=== PATIENT | female | born 1945 | race Caucasian/White ===

== ENCOUNTER 2016-07-13 01:01 | Inpatient (IN) | payer MEDICARE, MEDICAID ==
[~2016-07-13] VITALS: Ht 157.5 cm; Wt 61.2 kg
[2016-07-13] VITALS (10 sets, daily range): BP systolic 102–146; BP diastolic 57–69
[~2016-07-13 01:01] MED LIST: BENICAR20 MG ORAL; IBUPROFEN600 MG ORAL; NKM; ZOFRAN ODT4 MG ORAL
--- NOTE | 2016-07-13 01:39 | Emergency Room Report ---
History of Present Illness General Chief Complaint: Abdominal Pain Source: Patient Present Illness HPI This is a 70-year-old female with no significant past medical history. She did have a history of appendectomy. She presents with chief complaint epigastric and right upper quadrant pain. Onset started this morning around 9 AM. It went away in an 11:00 she has severe pain. Pain lasted for about 15 minutes or so. She became pale and diaphoretic according to her son. The pain went away she came back to normal. She was doing well at about an hour ago. Now pain came back again and it's localized retinal quadrant epigastric area. No pain to the back. Nausea and vomiting. No diarrhea. No fever or chills. No chest pain. No exertional component. Allergies: Coded Allergies: MORPHINE (Unverified Adverse Reaction, Severe, Hallucinations, 08/13/13) Patient History Past Medical History: see triage record, old chart reviewed Past Surgical History: appy Pertinent Family History: none Social History: Denies: smoking Last Menstrual Period: NONE Now: No Immunizations: other Reviewed Nursing Documentation: PMH: Agreed, PSxH: Agreed Nursing Documentation-PMH Hx Hypertension: Yes Hx Cancer: No Hx Gastrointestinal Problems: No Hx Vertigo: Yes Hx Dizziness: Yes Hx Headaches: Yes Review of Systems Eye: Denies: blurred vision, eye pain ENT: Denies: ear pain, nose congestion, throat swelling Respiratory: Denies: cough, shortness of breath Cardiovascular: Denies: chest pain, palpitations Gastrointestinal: Reports: abdominal pain, nausea, vomiting, Denies: diarrhea Musculoskeletal: Denies: back pain, joint pain Skin: Denies: rash Neurological: Denies: headache, numbness Endocrine: Denies: increased thirst, increased urine Hematologic/Lymphatic: Denies: easy bruising All Other Systems: negative except mentioned in HPI Physical Exam Vital Signs Date Time Temp Pulse Resp B/P Pulse Ox O2 Delivery O2 Flow Rate FiO2 07/13/16 01:03 99.0 104 16 148/69 97 Room Air vitals unremarkable Sp02 EP Interpretation: reviewed, normal General Appearance: well appearing, no apparent distress, alert Head: normocephalic, atraumatic Eyes: bilateral eye EOMI, bilateral eye PERRL ENT: hearing grossly normal, normal pharynx Neck: full range of motion, supple, no meningismus Respiratory: chest non-tender, lungs clear, normal breath sounds Cardiovascular #1: regular rate, rhythm, no murmur Gastrointestinal: normal bowel sounds, no mass, no organomegaly, no bruit, non- distended, tenderness - Epigastric and right upper quadrant Musculoskeletal: back normal, gait/station normal, normal range of motion Psychiatric: mood/affect normal Skin: warm/dry Medical Decision Making Diagnostic Impression: Primary Impression: Cholelithiasis Qualified Codes: K80.20 - Calculus of gallbladder without cholecystitis without obstruction ER Course Patient present with epigastric pain and right upper quadrant pain. My bedside ultrasound has positive Us sign. She does have gallstones and sludge. His skin negative for obstruction. CT scan negative for cholecystitis. Labs show slight elevation of AST ALT. Because of her continual pain, will admit for further evaluation. I contacted Dr. Telles who will be admitting for Dr. Palmer. because of her continual pain, worrisome for early cholecystitis. Will admit. Lab Results Impression labs with slight elevation of LFTs EKG Diagnostic Results Rate: normal Rhythm: NSR ST Segments: no acute changes Rhythm Strip Diag. Results EP Interpretation: yes Rate: 95 Rhythm: NSR, no PVC's, no ectopy CT/MRI/US Diagnostic Results CT/MRI/US Diagnostic Results : Imaging Test Ordered: CT abdomen and pelvis. Impression read by radiologist. Gallstones. No cholecystitis obstruction Last Vital Signs Date Time Temp Pulse Resp B/P Pulse Ox O2 Delivery O2 Flow Rate FiO2 07/13/16 01:15 96 27 146/68 98 Room Air 07/13/16 01:03 99.0 Status: improved Disposition: ADMITTED INPATIENT Condition: Serious EDGARDO BEDOYA M.D. July 13, 2016 01:39
[2016-07-13 01:45] LABS: MEAN CORPUSCULAR HEMOGLOBIN 29.9 PG (27.0-31.0); MEAN CORPUSCULAR HGB CONC 34.5 G/DL (32.0-36.0); MEAN CORPUSCULAR VOLUME 87 FL (80-99); MEAN PLATELET VOLUME 7.7 FL (6.5-10.1); PLATELET COUNT 171 K/UL (150-450); RED CELL DISTRIBUTION WIDTH 11.7 % (11.6-14.8); WHITE BLOOD COUNT 8.8 K/UL (4.8-10.8)
[2016-07-13] MEDS ORDERED: Hydromorphone 0.5mg/0.5ml inj IVP ONE (01:45)
[2016-07-13 01:59] LABS: ALBUMIN/GLOBULIN RATIO 1.7 (1.0-2.7); CALCIUM 9.3 mg/dL (8.6-10.2); GLOMERULAR FILTRATION RATE 55.1 mL/min (>60); POTASSIUM 3.9 mEQ/L (3.4-4.9); TOTAL PROTEIN 6.7 g/dL (6.6-8.7)
[2016-07-13 02:08] LABS: TROPONIN I < 0.30 ng/mL (<=0.30)
[2016-07-13 03:29] LABS: APPEARANCE,URINE CLEAR; KETONES,URINE NEGATIVE (NEGATIVE); LEUKOCYTE ESTERASE ,URINE 2+ (NEGATIVE); NITRITE,URINE NEGATIVE (NEGATIVE); PH,URINE 5 (4.5-8.0); PROTEIN,URINE NEGATIVE (NEGATIVE); UROBILINOGEN,URINE NORMAL MG/DL (0.0-1.0)
[2016-07-13 03:37] LABS: BACTERIA,URINE FEW /HPF; RBC,URINE 0-2 /HPF (0 - 2); SQUAMOUS EPITHELIAL CELL,UR FEW /LPF (NONE/OCC)
[2016-07-13] MEDS ORDERED: Milk of Magnesia 30ml Ud ORAL PRN (07:30)
[2016-07-13] MEDS ORDERED: Norco 5mg/325mg tab ORAL PRN (07:30)
[2016-07-13] MEDS ORDERED: Hydromorphone 0.5mg/0.5ml inj IVP PRN (07:30)
[2016-07-13] MEDS ORDERED: Miralax 17gm pkt ORAL PRN (07:30)
--- NOTE | 2016-07-13 07:53 | Consultation ---
Consult Note Consult Note Surgery Came to ED due to 2 hours of epigastric pain. Has completely gone away. Never had before. Not sure if it was right or left, was right in the middle of the upper abdomen for her. Denies fevers/chills. [place] nauseated but not sure if she vomitted. PMHx: HTN PSHx: Appendectomy, Tonsills Meds: Benicar Allergies: Morphine FamHx: non contib SocHx: non contrib ROS: as per above PE: AVSS NAD AAO unlabored soft, non tender in all quads to deep palpation Labs reviewed WBC normal Imaging: none Assessment/Plan a/p epigastric pain differential: Colic vs. PUD vs. other resolved after 2 hours can cont with outpatient follow up and workup no surgical intervention indicated at moment ISAAC MAYBERRY July 13, 2016 07:53
[2016-07-13] MEDS: D5 1/2NS w/KCl 20mEq 1,000 ML IV SCH ×3 (09:28→20:54)
--- NOTE | 2016-07-13 09:44 | Diagnostic Imaging Report ---
Indication: Abdominal pain Technique: Continuous helical transaxial imaging of the abdomen and pelvis was obtained from the lung bases to the pubic symphysis during intravenous contrast administration. Coronal 2-D reformats were also obtained. Study obtained in a Siemens sensation [address] Total Dose length Product (DLP): [address] Dose Index Volume (CTDIvol): 18 mGy Comparison: None Findings: There is mild posterior basilar atelectasis demonstrated. Gallstones are present. Arterial vascular consultations noted in the aorta. Small hiatal hernia is present. Is no abnormalities of the pancreas, adrenal glands or spleen appreciated. No free fluid or free air identified. Diverticula noted in the colon. Urinary bladder is unremarkable. There is narrowing of intervertebral discs and accompanying endplate osteophyte formation. Hypertrophied facet joints also demonstrated.. Impression: Cholelithiasis. Hiatal hernia Mild posterior basilar atelectasis Diverticulosis of the colon Atherosclerotic vascular disease [facility] has communicated the preliminary results to the Emergency Department. Their findings are largely concordant with this report. The CT scanner at [facility] is accredited by the [employer] and the scans are performed using dose optimization techniques as appropriate to a performed exam including Automatic Exposure control.
--- NOTE | 2016-07-13 11:23 | General Progress Note ---
Assessment/Plan Assessment/Plan Assessment - resolved transient epigastric pain, ? viral - mildly abnormal LFT - cholelithiasis - diverticulosis - Hiatal hernia Recommendations - conservative Rx - check hepatitis serologies - po diet trial - outpt EGD/Colon Subjective Allergies: Coded Allergies: MORPHINE (Unverified Adverse Reaction, Severe, Hallucinations, 08/13/13) Objective Last 24 Hour Vital Signs Date Time Temp Pulse Resp B/P Pulse Ox O2 Delivery O2 Flow Rate FiO2 07/13/16 08:10 98.1 69 20 110/59 97 Room Air 07/13/16 06:30 98.1 20 102/58 69 Room Air 07/13/16 05:46 79 19 116/57 96 07/13/16 05:30 98.0 79 19 116/57 96 Room Air 07/13/16 04:00 80 18 133/69 98 Room Air 07/13/16 03:00 99.0 07/13/16 01:59 96 21 129/57 96 07/13/16 01:15 96 27 146/68 98 Room Air 07/13/16 01:03 99.0 104 16 148/69 97 Room Air Intake and Output 07/12/16 07/13/16 19:00 07:00 Intake Total 0 ml Balance 0 ml Intake Oral 0 ml Laboratory Tests 07/13/16 01:15: White Blood Count 8.8, Red Blood Count 4.30, Hemoglobin 12.9, Hematocrit 37.2, Mean Corpuscular Volume 87, Mean Corpuscular Hemoglobin 29.9, Mean Corpuscular Hemoglobin Concent 34.5, Red Cell Distribution Width 11.7, Platelet Count 171, Mean Platelet Volume 7.7, Neutrophils (%) (Auto) , Lymphocytes (%) (Auto) , Monocytes (%) (Auto) , Eosinophils (%) (Auto) , Basophils (%) (Auto) , Sodium Level 141, Potassium Level 3.9, Chloride Level 100, Carbon Dioxide Level 23, Anion Gap 18H, Blood Urea Nitrogen 18, Creatinine 1.0H, Estimat Glomerular Filtration Rate 55.1, Glucose Level 108H, Calcium Level 9.3, Total Bilirubin 0.9 , Aspartate Amino Transf (AST/SGOT) 54H, Alanine Aminotransferase (ALT/SGPT) 42H , Alkaline Phosphatase 86, Troponin I < 0.30, Total Protein 6.7, Albumin 4.3, Globulin 2.4, Albumin/Globulin Ratio 1.7, Lipase 28 07/13/16 03:05: Urine Color Pale yellow, Urine Appearance Clear, Urine pH 5, Urine Specific [place] 1.010, Urine Protein Negative, Urine Glucose (UA) Negative, Urine Ketones Negative, Urine Occult Blood Negative, Urine Nitrite Negative, Urine Bilirubin Negative, Urine Urobilinogen Normal, Urine Leukocyte Esterase 2+H, Urine RBC 0-2, Urine WBC 2-4, Urine Squamous Epithelial Cells Few, Urine Bacteria Few Height (Feet): 5 Height (Inches): 2.00 Weight (Pounds): 135 LETICIAJCWALTER July 13, 2016 11:23
--- NOTE | 2016-07-13 16:59 | History & Physical ---
History and Physical History & Physicial Dictated for Int Med - Dr Telles no. [id number]. JONATHAN PADRON July 13, 2016 16:59
--- NOTE | 2016-07-13 20:15 | History and Physical Report ---
DATE OF ADMISSION: 07/13/2016 CHIEF COMPLAINT: The patient is a 70-year-old white female who presents with complaint of abdominal pain. HISTORY OF PRESENT ILLNESS: Couple of hours prior to admission, around 9 o'clock on 07/12/2016 the patient began to have epigastric pain. The patient is not sure whether it radiated to the right or to the left side. The patient presented to [place] emergency room. The patient states the pain is now resolved. The patient states the pain lasts about two hours. The patient presented today with a chief complaint of epigastric pain. REVIEW OF SYSTEMS: Constitutional: The patient denies weight loss or weight gain. The patient denies fever or chills. HEENT: The patient denies ear or throat pain. Cardiovascular: The patient denies palpitations or chest pain. Chest: The patient denies wheeze or shortness of breath. Abdomen: The patient complains of epigastric pain as above. The patient denies nausea, vomiting, diarrhea, constipation. Genitourinary: The patient denies dysuria or increased frequency of urination. Neuromuscular: The patient seizures or generalized weakness. PAST MEDICAL HISTORY: Significant for: 1. Hypertension. 2. Tinnitus bilateral ears. PAST SURGICAL HISTORY: Significant for. 1. Tonsillectomy. 2. Appendectomy. 3. Bilateral tubal ligation. CURRENT MEDICATIONS: 1. Ibuprofen 600 mg one tablet p.o. every 6 hours p.r.n. 2. Benicar 20 mg one tablet p.o. daily. 3. Zofran 4 mg one tablet p.o. every 6 hours as needed. ALLERGIES: To morphine. SOCIAL HISTORY: The patient is . 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 The patient denies tobacco or alcohol use. PHYSICAL EXAMINATION: VITAL SIGNS: Temperature 98.0, respirations 19, pulse 79, blood pressure 116/57. GENERAL: The patient is well-developed and well-nourished white female, in no apparent distress. HEENT: Eyes, pupils are equal and responsive to light and accommodation. Extraocular movements are intact. NECK: Supple. No lymphadenopathy. CHEST: Lungs are clear to auscultation bilaterally without wheezes or rales. CARDIOVASCULAR: Regular rhythm and rate. S1 and S2 normal without murmurs, rubs, or gallops. ABDOMEN: Soft, nondistended with positive bowel sounds. There is tenderness to palpation in the epigastric region. There is no rebound or guarding. EXTREMITIES: Negative for clubbing, cyanosis, edema. RECTAL: Refused. GENITALIA: Refused. NEUROLOGIC: Cranial nerves II through XII are grossly intact without focal deficits. Motor strength is 5/5 bilaterally. Deep tendon reflexes are 2+ plantar. LABORATORY STUDIES: WBC 8.8, hemoglobin 12.9, hematocrit 37.2, and platelets 171,000. Sodium 141, potassium 3.9, chloride 100, CO2 23, BUN 18, creatinine 1.0, glucose 108, AST elevated at 54, ALT elevated at 42. Troponin less than 0.3. A CT scan of the abdomen and pelvis revealed cholelithiasis. There were no common bile duct stones noted. There was also a diverticulosis of the colon without diverticulitis. ASSESSMENT: This is a 70-year-old white female. 1. Epigastric pain. 2. Elevated liver function tests. 3. Cholelithiasis. 4. Hypertension. 5. Diverticulosis. TREATMENT: 1. Epigastric pain/elevated liver function tests. A Gastroenterology consultation was obtained with Dr. Cory Gonzalez. We will follow recommendations of Gastroenterology. The patient may require endoscopic retrograde cholangiopancreatography if the stone is found in the common bowel duct. A surgery consultation is pending with Dr. Cline. 2. Elevated liver function tests probably secondary to cholelithiasis. 3. Cholelithiasis. A surgery consultation is pending with Dr. Cline. We will recommendations of surgery. 4. Hypertension. Continue the Benicar as above. 5. Diverticulosis, stable. Caleb Myers M.D. DR: Baylee JOB#: [id number] CC:
--- NOTE | 2016-07-13 22:00 | Consultation ---
DATE OF CONSULTATION: 07/13/2016 GASTROENTEROLOGY CONSULTATION CONSULTING PHYSICIAN: Nicole Almonte M.D. REFERRING PHYSICIAN: Mayo Telles M.D. CHIEF COMPLAINT: I was asked to see this patient by Dr. Mayo Telles for evaluation of abdominal pain and abnormal liver tests. HISTORY OF PRESENT ILLNESS: The patient is a pleasant 70-year-old white woman who comes into the hospital with acute onset of epigastric abdominal pain for a few hours. The patient's pain resolved soon after admission to the hospital. There was some nausea and vomiting x2, but this has resolved. There has been no diarrhea. She had a bowel movement yesterday, which was normal. She has never had an endoscopy or colonoscopy in her life. CT scan showed some cholelithiasis, diverticulosis, and hiatal hernia, but otherwise no other findings were identified. The patient feels better now. PAST MEDICAL HISTORY: History of hypertension and history of Meniere's disease. ALLERGIES: Morphine. FAMILY HISTORY: Positive for high blood pressure. SOCIAL HISTORY: The patient is . She does not smoke or drink alcohol. REVIEW OF SYSTEMS: Otherwise negative. PHYSICAL EXAMINATION: GENERAL: This is a pleasant white woman, seen in her room. HEENT: Normocephalic and atraumatic. Sclerae anicteric. Oropharynx is clear. NECK: Supple. CHEST: Clear to auscultation. CARDIOVASCULAR: Regular rate. ABDOMEN: Soft and nondistended with some minimal tenderness to palpation in the epigastric region without guarding or rebound. EXTREMITIES: No edema. NEUROLOGIC: Nonfocal. LABORATORY DATA: Noted. ASSESSMENT: This patient presents with transient nausea, vomiting, and abdominal pain, which has resolved spontaneously without definitive treatment. She does have some gallstones, but these are likely incidental. Differential diagnosis especially in view of the transient nature of the symptoms include mild gastroenteritis. She does not show any edel evidence of bleeding. Her stools can be checked for occult blood both for evaluation and as a matter of screening. The patient was advised strongly to undergo an outpatient colonoscopy to screen for colon malignancy unrelated to her current presentation. The patient also was also advised that an endoscopy can be done at the same time. She is, however, reluctant to have any gastrointestinal procedures done and she understands the possibility of a missed significant diagnosis as malignancy. If she is better, I would begin her on clear liquid diet and observe and advance as tolerated. RECOMMENDATIONS: Per above discussion and per orders written in the chart. Thank you for asking me to participate in the care of this patient. Nicole Almonte M.D. DR: DAISY JOB#: [id number] CC:
--- NOTE | 2016-07-13 22:31 | Consultation ---
History of Present Illness General Date patient seen: July 13, 2016 Chief Complaint: Abdominal Pain Reason for Consultation: inpatient management Present Illness HPI 70-year-old female with pmhx of HTN presented with chief complaint epigastric and right upper quadrant pain. Pain lasted for about 15 minutes or so. She became pale and diaphoretic according to her son. The pain went away she came back to normal. She was doing well at about an hour ago. Then pain came back again and it's localized right quadrant epigastric area. No pain to the back. Nausea and vomiting. No diarrhea. No fever or chills. No chest pain. No exertional component. Allergies: Coded Allergies: MORPHINE (Unverified Adverse Reaction, Severe, Hallucinations, 08/13/13) Medication History Scheduled No Known Medications* (NKM - No Known Medications*), 0 ., (Reported) No Known Medications* (NKM - No Known Medications*), 0 ., (Reported) Olmesartan Medoxomil (Benicar), 20 MG ORAL DAILY, (Reported) Scheduled PRN Ibuprofen* (Motrin*), 600 MG ORAL Q6H PRN for For Pain, (Reported) Ondansetron Odt* (Zofran Odt*), 4 MG ORAL Q6H PRN for Nausea & Vomiting Patient History Healthcare decision maker Resuscitation status Full Code Advanced Directive on File No Past Medical/Surgical History Past Medical/Surgical History: (1) Hypertension Review of Systems All Other Systems: negative except mentioned in HPI Physical Exam General Appearance: WD/WN Lines, tubes and drains: peripheral HEENT: normocephalic, atraumatic Neck: non-tender, normal alignment Respiratory/Chest: chest wall non-tender, lungs clear Breasts: no masses Cardiovascular/Chest: normal peripheral pulses Abdomen: normal bowel sounds, non tender Genitourinary/Rectal: normal genital exam Extremities: normal range of motion Last 24 Hour Vital Signs Date Time Temp Pulse Resp B/P Pulse Ox O2 Delivery O2 Flow Rate FiO2 07/13/16 19:55 98.2 77 20 126/60 97 Room Air 07/13/16 16:24 98.6 75 21 130/64 99 Room Air 75 07/13/16 12:29 97.7 96 25 117/57 99 Room Air 96 07/13/16 08:10 98.1 69 20 110/59 97 Room Air 07/13/16 06:30 98.1 20 102/58 69 Room Air 07/13/16 05:46 79 19 116/57 96 07/13/16 05:30 98.0 79 19 116/57 96 Room Air 07/13/16 04:00 80 18 133/69 98 Room Air 07/13/16 03:00 99.0 07/13/16 01:59 96 21 129/57 96 07/13/16 01:15 96 27 146/68 98 Room Air 07/13/16 01:03 99.0 104 16 148/69 97 Room Air Intake and Output 07/12/16 07/13/16 19:00 07:00 Intake Total 0 ml Balance 0 ml Intake Oral 0 ml Laboratory Tests Test 07/13/16 01:15 07/13/16 03:05 White Blood Count 8.8 K/UL (4.8-10.8) Red Blood Count 4.30 M/UL (4.20-5.40) Hemoglobin 12.9 G/DL (12.0-16.0) Hematocrit 37.2 % (37.0-47.0) Mean Corpuscular Volume 87 FL (80-99) Mean Corpuscular Hemoglobin 29.9 PG (27.0-31.0) Mean Corpuscular Hemoglobin Concent 34.5 G/DL (32.0-36.0) Red Cell Distribution Width 11.7 % (11.6-14.8) Platelet Count 171 K/UL (150-450) Mean Platelet Volume 7.7 FL (6.5-10.1) Neutrophils (%) (Auto) % (45.0-75.0) Lymphocytes (%) (Auto) % (20.0-45.0) Monocytes (%) (Auto) % (1.0-10.0) Eosinophils (%) (Auto) % (0.0-3.0) Basophils (%) (Auto) % (0.0-2.0) Sodium Level 141 mEQ/L (135-145) Potassium Level 3.9 mEQ/L (3.4-4.9) Chloride Level 100 mEQ/L (98-107) Carbon Dioxide Level 23 mEQ/L (20-30) Anion Gap 18 (5-15) H Blood Urea Nitrogen 18 mg/dL (7-23) Creatinine 1.0 mg/dL (0.5-0.9) H Estimat Glomerular Filtration Rate 55.1 mL/min (>60) Glucose Level 108 mg/dL (74-106) H Calcium Level 9.3 mg/dL (8.6-10.2) Total Bilirubin 0.9 mg/dL (0.0-1.2) Aspartate Amino Transf (AST/SGOT) 54 U/L (5-40) H Alanine Aminotransferase (ALT/SGPT) 42 U/L (3-33) H Alkaline Phosphatase 86 U/L (35-104) Troponin I < 0.30 ng/mL (<=0.30) Total Protein 6.7 g/dL (6.6-8.7) Albumin 4.3 g/dL (3.5-5.2) Globulin 2.4 g/dL Albumin/Globulin Ratio 1.7 (1.0-2.7) Lipase 28 U/L (< 60) Urine Color Pale yellow Urine Appearance Clear Urine pH 5 (4.5-8.0) Urine Specific [place] 1.010 (1.005-1.035) Urine Protein Negative (NEGATIVE) Urine Glucose (UA) Negative (NEGATIVE) Urine Ketones Negative (NEGATIVE) Urine Occult Blood Negative (NEGATIVE) Urine Nitrite Negative (NEGATIVE) Urine Bilirubin Negative (NEGATIVE) Urine Urobilinogen Normal MG/DL (0.0-1.0) Urine Leukocyte Esterase 2+ (NEGATIVE) H Urine RBC 0-2 /HPF (0 - 2) Urine WBC 2-4 /HPF (0 - 2) Urine Squamous Epithelial Cells Few /LPF (NONE/OCC) Urine Bacteria Few /HPF (NONE) Height (Feet): 5 Height (Inches): 2.00 Weight (Pounds): 135 Medications Current Medications Medications (Trade) Dose Ordered Sig/Aura Route PRN Reason Start Time Stop Time Status Last Admin Dose Admin Acetaminophen (Tylenol) 650 mg Q4H PRN ORAL Mild Pain (Pain Scale 1-3) 07/13/16 07:30 6 07:29 Acetaminophen (Tylenol) 650 mg Q4H PRN ORAL fever 07/13/16 07:30 6 07:29 Acetaminophen/ Hydrocodone Bitart ([place] 5/325) 1 tab Q4H PRN ORAL Moderate Pain (Pain Scale 4-6) 07/13/16 07:30 07/20/16 07:29 Dextrose (Dextrose 50%) STAT PRN IV Hypoglycemia 07/13/16 07:30 08/12/16 07:29 Dextrose/ Electrolytes (D5 0.45%NS W/ KCl 20mEq) 1,000 ml @ 100 mls/hr Q10H IV 07/13/16 09:00 08/12/16 08:59 07/13/16 20:54 Hydromorphone HCl (Dilaudid) 0.5 mg Q4H PRN IVP Severe Pain (Pain Scale 7-10) 07/13/16 07:30 07/20/16 07:29 Magnesium Hydroxide (Mom) 30 ml HSPRN PRN ORAL Constipation 07/13/16 07:30 08/12/16 07:29 Pantoprazole (Protonix) 40 mg BID ORAL 07/13/16 09:00 08/12/16 08:59 07/13/16 18:05 Polyethylene Glycol (Miralax) 17 gm HSPRN PRN ORAL Constipation 07/13/16 07:30 08/12/16 07:29 Assessment/Plan Problem List: (1) Intractable abdominal pain ICD Codes: R10.9 - Unspecified abdominal pain SNOMED: 61906394, [id number] (2) Hypertension ICD Codes: I10 - Essential (primary) hypertension SNOMED: 06827805 (3) Episode of generalized weakness ICD Codes: R53.1 - Weakness SNOMED: 20710458 Assessment/Plan NPO IV fluids GI evaluation check abd us monitor bp dvt prophylaxis check labs check amylase and lipase YE DANG July 13, 2016 22:31
[2016-07-14 04:00] VITALS: BP 125/62
[2016-07-14 06:31] LABS: INR 1.1 (0.9-1.1); PROTHROMBIN TIME 10.9 SEC (9.30-11.50)
[2016-07-14 06:50] LABS: BASOPHILS % (AUTO) 0.7 % (0.0-2.0); EOSINOPHILS % (AUTO) 2.7 % (0.0-3.0); LYMPHOCYTES % (AUTO) 24.1 % (20.0-45.0); MEAN CORPUSCULAR HEMOGLOBIN 29.4 PG (27.0-31.0); MEAN CORPUSCULAR HGB CONC 33.6 G/DL (32.0-36.0); MEAN CORPUSCULAR VOLUME 87 FL (80-99); MEAN PLATELET VOLUME 7.1 FL (6.5-10.1); NEUTROPHILS % (AUTO) 61.4 % (45.0-75.0); PLATELET COUNT 128 K/UL (150-450); RED BLOOD COUNT 4.04 M/UL (4.20-5.40); RED CELL DISTRIBUTION WIDTH 11.8 % (11.6-14.8); WHITE BLOOD COUNT 4.4 K/UL (4.8-10.8)
[2016-07-14 07:16] LABS: ALBUMIN/GLOBULIN RATIO 1.5 (1.0-2.7); CALCIUM 9.1 mg/dL (8.6-10.2); GLOMERULAR FILTRATION RATE 55.1 mL/min (>60); MAGNESIUM 2.1 mg/dL (1.7-2.5)
[2016-07-14 08:27] VITALS: BP 115/56
[2016-07-14 12:30] VITALS: BP 122/63
[2016-07-14] MEDS: D5 1/2NS w/KCl 20mEq 1,000 ML IV SCH (14:04)
--- NOTE | 2016-07-14 15:00 | Pulmonology Progress Note ---
Assessment/Plan Problems: (1) Intractable abdominal pain (2) Hypertension (3) Episode of generalized weakness Assessment/Plan improving symptomatic treatment GI and surgery note reviewed pt could go home Needs to avoid NSAId Subjective ROS Limited/Unobtainable: No Interval Events: asymptomatic, Allergies: Coded Allergies: MORPHINE (Unverified Adverse Reaction, Severe, Hallucinations, 08/13/13) Objective Last 24 Hour Vital Signs Date Time Temp Pulse Resp B/P Pulse Ox O2 Delivery O2 Flow Rate FiO2 07/14/16 12:30 97.7 63 16 122/63 99 Room Air 07/14/16 08:27 97.7 70 18 115/56 97 Room Air 07/14/16 04:00 97.7 77 18 125/62 97 Room Air 07/13/16 23:53 97.7 74 18 137/67 99 Room Air 07/13/16 19:55 98.2 77 20 126/60 97 Room Air 07/13/16 16:24 98.6 75 21 130/64 99 Room Air 75 Intake and Output 07/13/16 07/14/16 19:00 07:00 Intake Total 1770 ml 650 ml Balance 1770 ml 650 ml Intake Oral 970 ml IV Total 800 ml 650 ml # Voids 2 General Appearance: WD/WN Respiratory/Chest: chest wall non-tender, lungs clear Cardiovascular: normal peripheral pulses, normal rate Abdomen: normal bowel sounds, soft, non tender Extremities: no cyanosis 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 Lymphatic: no neck adenopathy Laboratory Tests 07/14/16 04:40: White Blood Count 4.4L, Red Blood Count 4.04L, Hemoglobin 11.9L, Hematocrit 35.3L, Mean Corpuscular Volume 87, Mean Corpuscular Hemoglobin 29.4, Mean Corpuscular Hemoglobin Concent 33.6, Red Cell Distribution Width 11.8, Platelet Count 128L, Mean Platelet Volume 7.1, Neutrophils (%) (Auto) 61.4, Lymphocytes ( %) (Auto) 24.1, Monocytes (%) (Auto) 11.0H, Eosinophils (%) (Auto) 2.7, Basophils (%) (Auto) 0.7, Prothrombin Time 10.9, Prothromb Time International Ratio 1.1, Activated Partial Thromboplast Time 27, Sodium Level 142, Potassium Level 4.0, Chloride Level 104, Carbon Dioxide Level 24, Anion Gap 14, Blood Urea Nitrogen 10, Creatinine 1.0H, Estimat Glomerular Filtration Rate 55.1, Glucose Level 106, Calcium Level 9.1, Magnesium Level 2.1, Total Bilirubin 0.6, Aspartate Amino Transf (AST/SGOT) 33, Alanine Aminotransferase (ALT/SGPT) 34H, Alkaline Phosphatase 70, Total Protein 6.0L, Albumin 3.6, Globulin 2.4, Albumin/ Globulin Ratio 1.5, Hepatitis A IgM Antibody [Pending], Hepatitis B Surface Antigen [Pending], Hepatitis B Core IgM Antibody [Pending], Hepatitis C Antibody [Pending] Current Medications Medications (Trade) Dose Ordered Sig/Aura Route PRN Reason Start Time Stop Time Status Last Admin Dose Admin Acetaminophen (Tylenol) 650 mg Q4H PRN ORAL Mild Pain (Pain Scale 1-3) 07/13/16 07:30 08/12/16 07:29 Acetaminophen (Tylenol) 650 mg Q4H PRN ORAL fever 07/13/16 07:30 08/12/16 07:29 Acetaminophen/ Hydrocodone Bitart ([place] 5/325) 1 tab Q4H PRN ORAL Moderate Pain (Pain Scale 4-6) 07/13/16 07:30 07/20/16 07:29 Dextrose (Dextrose 50%) STAT PRN IV Hypoglycemia 07/13/16 07:30 08/12/16 07:29 Dextrose/ Electrolytes (D5 0.45%NS W/ KCl 20mEq) 1,000 ml @ 100 mls/hr Q10H IV 07/13/16 09:00 08/12/16 08:59 07/14/16 14:04 Hydromorphone HCl (Dilaudid) 0.5 mg Q4H PRN IVP Severe Pain (Pain Scale 7-10) 07/13/16 07:30 07/20/16 07:29 Magnesium Hydroxide (Mom) 30 ml HSPRN PRN ORAL Constipation 07/13/16 07:30 08/12/16 07:29 Pantoprazole (Protonix) 40 mg BID ORAL 07/13/16 09:00 08/12/16 08:59 07/14/16 08:07 Polyethylene Glycol (Miralax) 17 gm HSPRN PRN ORAL Constipation 07/13/16 07:30 08/12/16 07:29 YE DANG July 14, 2016 14:59
--- NOTE | 2016-07-14 15:22 | Internal Med Progress Note ---
Subjective Physician Name Mayo Telles Attending Physician Mayo Telles MD Current Medications Medications (Trade) Dose Ordered Sig/Aura Route PRN Reason Start Time Stop Time Status Last Admin Dose Admin Acetaminophen (Tylenol) 650 mg Q4H PRN ORAL Mild Pain (Pain Scale 1-3) 07/13/16 07:30 08/12/16 07:29 Acetaminophen (Tylenol) 650 mg Q4H PRN ORAL fever 07/13/16 07:30 08/12/16 07:29 Acetaminophen/ Hydrocodone Bitart ([place] 5/325) 1 tab Q4H PRN ORAL Moderate Pain (Pain Scale 4-6) 07/13/16 07:30 07/20/16 07:29 Dextrose (Dextrose 50%) STAT PRN IV Hypoglycemia 07/13/16 07:30 08/12/16 07:29 Dextrose/ Electrolytes (D5 0.45%NS W/ KCl 20mEq) 1,000 ml @ 100 mls/hr Q10H IV 07/13/16 09:00 08/12/16 08:59 07/14/16 14:04 Hydromorphone HCl (Dilaudid) 0.5 mg Q4H PRN IVP Severe Pain (Pain Scale 7-10) 07/13/16 07:30 07/20/16 07:29 Magnesium Hydroxide (Mom) 30 ml HSPRN PRN ORAL Constipation 07/13/16 07:30 08/12/16 07:29 Pantoprazole (Protonix) 40 mg BID ORAL 07/13/16 09:00 08/12/16 08:59 07/14/16 08:07 Polyethylene Glycol (Miralax) 17 gm HSPRN PRN ORAL Constipation 07/13/16 07:30 08/12/16 07:29 Allergies: Coded Allergies: MORPHINE (Unverified Adverse Reaction, Severe, Hallucinations, 08/13/13) Subjective awake, alert, responsive , No Abdominal pain. Objective Last Vital Signs Date Time Temp Pulse Resp B/P Pulse Ox O2 Delivery O2 Flow Rate FiO2 07/14/16 12:30 97.7 63 16 122/63 99 Room Air Laboratory Tests Test 07/14/16 04:40 White Blood Count 4.4 K/UL (4.8-10.8) L Red Blood Count 4.04 M/UL (4.20-5.40) L Hemoglobin 11.9 G/DL (12.0-16.0) L Hematocrit 35.3 % (37.0-47.0) L Mean Corpuscular Volume 87 FL (80-99) Mean Corpuscular Hemoglobin 29.4 PG (27.0-31.0) Mean Corpuscular Hemoglobin Concent 33.6 G/DL (32.0-36.0) Red Cell Distribution Width 11.8 % (11.6-14.8) Platelet Count 128 K/UL (150-450) L Mean Platelet Volume 7.1 FL (6.5-10.1) Neutrophils (%) (Auto) 61.4 % (45.0-75.0) Lymphocytes (%) (Auto) 24.1 % (20.0-45.0) Monocytes (%) (Auto) 11.0 % (1.0-10.0) H Eosinophils (%) (Auto) 2.7 % (0.0-3.0) Basophils (%) (Auto) 0.7 % (0.0-2.0) Prothrombin Time 10.9 SEC (9.30-11.50) Prothromb Time International Ratio 1.1 (0.9-1.1) Activated Partial Thromboplast Time 27 SEC (23-33) Sodium Level 142 mEQ/L (135-145) Potassium Level 4.0 mEQ/L (3.4-4.9) Chloride Level 104 mEQ/L (98-107) Carbon Dioxide Level 24 mEQ/L (20-30) Anion Gap 14 (5-15) Blood Urea Nitrogen 10 mg/dL (7-23) Creatinine 1.0 mg/dL (0.5-0.9) H Estimat Glomerular Filtration Rate 55.1 mL/min (>60) Glucose Level 106 mg/dL (74-106) Calcium Level 9.1 mg/dL (8.6-10.2) Magnesium Level 2.1 mg/dL (1.7-2.5) Total Bilirubin 0.6 mg/dL (0.0-1.2) Aspartate Amino Transf (AST/SGOT) 33 U/L (5-40) Alanine Aminotransferase (ALT/SGPT) 34 U/L (3-33) H Alkaline Phosphatase 70 U/L (35-104) Total Protein 6.0 g/dL (6.6-8.7) L Albumin 3.6 g/dL (3.5-5.2) Globulin 2.4 g/dL Albumin/Globulin Ratio 1.5 (1.0-2.7) Hepatitis A IgM Antibody Pending Hepatitis B Surface Antigen Pending Hepatitis B Core IgM Antibody Pending Hepatitis C Antibody Pending Intake and Output 07/13/16 07/14/16 19:00 07:00 Intake Total 1770 ml 650 ml Balance 1770 ml 650 ml Intake Oral 970 ml IV Total 800 ml 650 ml # Voids 2 Objective General: No acute distress, awake and alert HEENT: NCAT, sclera anicteric, PERRL, EOMI. Neck: Supple, no significant jugular venous distention, Lungs: Good inspiratory effort, no accessory muscle use, clear to auscultation bilaterally, no Wheeze Heart: Regular rate and rhythm, normal S1/S2, no murmur Abdomen: soft, nontender, nondistended. Normoactive bowel sounds. / Rectal: Refused and deferred. Extremities: No Cyanosis , clubbing or edema. Neuro: A&O x 3, Able to move all extremities Skin: warm, no rashes or lesions Psych: Normal mood and affect Assessment/Plan Assessment/Plan 1. Epigastric pain resolved. 2. Elevated liver function tests. 3. Cholelithiasis. 4. Hypertension. 5. Diverticulosis. Plan: Discharge home today. F/U with Dr. Palmer within 1 week. Mayo Telles MD July 14, 2016 15:22
[2016-07-14 15:31] VITALS: BP 127/69
--- NOTE | 2016-07-14 21:30 | General Progress Note ---
Assessment/Plan Assessment/Plan Assessment - resolved transient epigastric pain, ? viral - mildly abnormal LFT - cholelithiasis - diverticulosis - Hiatal hernia Recommendations - conservative Rx - check hepatitis serologies - po diet trial - outpt EGD/Colon strongly encouraged Subjective Allergies: Coded Allergies: MORPHINE (Unverified Adverse Reaction, Severe, Hallucinations, 08/13/13) Subjective Feels better no abd pain tolerating PO for d/c today Objective Last 24 Hour Vital Signs Date Time Temp Pulse Resp B/P Pulse Ox O2 Delivery O2 Flow Rate FiO2 07/14/16 15:31 97.7 69 14 127/69 100 Room Air 07/14/16 12:30 97.7 63 16 122/63 99 Room Air 07/14/16 08:27 97.7 70 18 115/56 97 Room Air 07/14/16 04:00 97.7 77 18 125/62 97 Room Air 07/13/16 23:53 97.7 74 18 137/67 99 Room Air Intake and Output 07/13/16 07/14/16 18:59 06:59 Intake Total 1670 ml 750 ml Balance 1670 ml 750 ml Intake Oral 970 ml IV Total 700 ml 750 ml # Voids 2 Laboratory Tests 07/14/16 04:40: White Blood Count 4.4L, Red Blood Count 4.04L, Hemoglobin 11.9L, Hematocrit 35.3L, Mean Corpuscular Volume 87, Mean Corpuscular Hemoglobin 29.4, Mean Corpuscular Hemoglobin Concent 33.6, Red Cell Distribution Width 11.8, Platelet Count 128L, Mean Platelet Volume 7.1, Neutrophils (%) (Auto) 61.4, Lymphocytes ( %) (Auto) 24.1, Monocytes (%) (Auto) 11.0H, Eosinophils (%) (Auto) 2.7, Basophils (%) (Auto) 0.7, Prothrombin Time 10.9, Prothromb Time International Ratio 1.1, Activated Partial Thromboplast Time 27, Sodium Level 142, Potassium Level 4.0, Chloride Level 104, Carbon Dioxide Level 24, Anion Gap 14, Blood Urea Nitrogen 10, Creatinine 1.0H, Estimat Glomerular Filtration Rate 55.1, Glucose Level 106, Calcium Level 9.1, Magnesium Level 2.1, Total Bilirubin 0.6, Aspartate Amino Transf (AST/SGOT) 33, Alanine Aminotransferase (ALT/SGPT) 34H, Alkaline Phosphatase 70, Total Protein 6.0L, Albumin 3.6, Globulin 2.4, Albumin/ Globulin Ratio 1.5, Hepatitis A IgM Antibody [Pending], Hepatitis B Surface Antigen [Pending], Hepatitis B Core IgM Antibody [Pending], Hepatitis C Antibody [Pending] Height (Feet): 5 Height (Inches): 2.00 Weight (Pounds): 135 Objective WDWN NCAT supple CTA RRR Soft ND, mild epig TTP no edema BRUCE KELLY July 14, 2016 21:30
--- NOTE | 2016-07-16 08:19 | Discharge Summary ---
Discharge Summary Hospital Course Date of Admission July 13, 2016 at 03:22 Date of Discharge July 14, 2016 at 19:05 Admitting Diagnosis CHOLECYSTITIS HPI Larissa Blank is a 70 year old female who was admitted on July 13, 2016 at 03:22 for Cholecystitis Hospital Course [id number] Discharge Discharge Disposition Patient was discharged to Home (01) Discharge Diagnoses: Ritu Mehta NP Jul 16, 2016 08:19
--- NOTE | 2016-07-17 00:45 | Discharge Summary 2 SIG ---
DATE OF ADMISSION: 07/13/2016 DATE OF DISCHARGE: 07/14/2016 CONSULTANTS: 1. Nicole Almonte M.D. 2. Laly Villalta M.D. 3. Marshall Cline M.D. BRIEF HOSPITAL COURSE: The patient is a 70-year-old female with no significant medical history, but had a prior appendectomy, presented to ED complaining of abdominal pain. The pain was located at the epigastric region and right upper quadrant. Pain started early in the morning and had progressive . She became pale and diaphoretic according to the son and the patient was transferred to [facility]. On evaluation, CT of the abdomen and pelvis showed gallstones with no cholecystitis, no obstruction. EKG showed normal sinus rhythm. A bedside ultrasound done was positive for Us's with presence of gallstones and sludge. Laboratories showed slight elevation of AST and ALT. Because of her pain, she was admitted for further evaluation. She was seen by Dr. Cline, pain has completely gone away. There was no surgical intervention indicated. She was also seen by GI consult, transient nausea and vomiting has resolved spontaneously. The patient has gallstones, but are likely incidental. Symptoms include mild gastroenteritis. There was no evidence of rectal bleeding. Her diet was advanced and due to rapid unexpected improvement in the patient's symptoms, the patient was discharged home. Strongly advised to undergo outpatient endoscopy and to follow up with Dr. Palmer, in a week. FINAL DIAGNOSES: 1. Epigastric pain with elevated liver function tests, resolved. 2. Cholelithiasis. 3. Hypertension. 4. Diverticulosis. 5. Hypertension. Mayo Telles M.D. I have been assigned to dictate discharge summary on this account and I was not involved in the patient's management. Ritu Mehta N.P. DR: KELLIE/SANTIAGO JOB#: [id number] CC:
== END 2016-07-14 19:05 | disposition home or self-care (01) | DRG 446 ==
LOC: EMR 01:30 → 4E 03:22 → EDBEDREQ 03:58
DX: K80.20 Calculus of gallbladder without cholecystitis without obstruction (principal); I10 Essential (primary) hypertension; K57.90 Diverticulosis of intestine, part unspecified, without perforation or abscess without bleeding; Z88.6 Allergy status to analgesic agent; H81.09 Meniere's disease, unspecified ear; K44.9 Diaphragmatic hernia without obstruction or gangrene
CPT/HCPCS: 36415; 74177; 80053; 81003; 83690; 83735; 84484; 85025; 85610; 85730; 86705; 86709; 86803; 87340; J2405